=== PATIENT | male | born 1985 | race Caucasian/White ===

== ENCOUNTER 2023-05-21 16:25 | Emergency (ER) | payer MEDICAID ==
[~2023-05-21] VITALS: Ht 172.7 cm; Wt 113.4 kg
[2023-05-21 17:20] VITALS: BP_SYST 134; PULSE 101; RESP 18; TEMP 97.2; O2SAT 95
[2023-05-21 20:03] VITALS: BP_SYST 134; PULSE 101; RESP 18; TEMP 97.2; O2SAT 95
== END 2023-05-21 20:03 | disposition left against medical advice (07) ==
LOC: SED 16:25
DX: R10.84 Generalized abdominal pain (principal); R19.7 Diarrhea, unspecified; Z53.21 Procedure and treatment not carried out due to patient leaving prior to being seen by health care provider
CPT/HCPCS: 99281